=== PATIENT | female | born 1965 | race American Indian/Alaskan Native ===

== ENCOUNTER 2021-12-06 12:03 | Emergency (ER) | payer SELFPAY ==
[2021-12-06 13:14] VITALS: BP 139/92
--- NOTE | 2021-12-06 13:18 | Emergency Department Report ---
Chief Complaint: Abdominal Pain Stated Complaint: RIGHT SIDE OF STOMACH PAIN Time Seen by Provider: 12/06/21 13:16 - HPI History of Present Illness: 1 week history of RLQ pain. denies fever. - ROS Review of Systems: rlq pain, denies fever, n/v/d, dysuria. - Exam Vital Signs: Vital Signs 12/06/21 13:08 Temperature 98.9 F Pulse Rate 100 H Respiratory 14 Rate Blood Pressure 139/92 O2 Sat by Pulse 100 Oximetry Physical Exam: alert and oriented. MSE screening note: Focused history and physical exam performed. Due to findings the following was ordered: cbc, cmp, ua, lipase. Patient will be evaluated by provider when she is placed in room in back. ED Disposition for MSE Condition: Stable Instructions: Abdominal Pain (ED)
[2021-12-06 14:19] LABS: Alanine Aminotransferase 28 units/L (7-56); Albumin 4.7 g/dL (3.9-5); Blood Urea Nitrogen 11 mg/dL (7-17); Calcium 10.2 mg/dL (8.4-10.2); Hemolysis Index 9
[2021-12-06 14:43] LABS: Hematocrit 39.1 % (30.3-42.9); Mean Corpuscular HGB Conc 33 % (30-34); Mean Corpuscular Volume 85 fl (79-97); Platelet Count 336 K/mm3 (140-440); Red Blood Count 4.58 M/mm3 (3.65-5.03); Red Cell Distribution Width 14.4 % (13.2-15.2)
[2021-12-06 14:44] LABS: BUN/Creatinine Ratio 28
[2021-12-06 21:03] LABS: Bilirubin,Urine NEG (Negative); Blood,Urine NEG (Negative); Color,Urine Straw (Yellow); Protein,Urine <15 mg/dL mg/dL (Negative); Urobilinogen,Urine < 2.0 mg/dL (<2.0)
[2021-12-06] MEDS ORDERED: ACETAMINOPHEN 500 MG TAB PO ONE (21:16)
--- NOTE | 2021-12-06 21:22 | Emergency Department Report ---
ED Abdominal Pain HPI - General Chief Complaint: Abdominal Pain Stated Complaint: RIGHT SIDE OF STOMACH PAIN Time Seen by Provider: 12/06/21 13:16 Source: patient Mode of arrival: Ambulatory Limitations: No Limitations - History of Present Illness Initial Comments: Patient 6-year-old female with history of hypertension who presents for right lower quadrant pain x1 week. Patient states pain is exacerbated by movement and reaching twisting. Patient denies fall injury or trauma. Patient denies dysuria frequency or urgency. There is no nausea no vomiting. Patient does endorse small hard stools. There is been no fevers no chills. No rigors. Lenore ent drove self to ED patient is alert oriented x3 and amatory with steady gait. Patient appears nontoxic and well-hydrated. Patient rates pain at 3/10 at this time. MD Complaint: abdominal pain - Related Data Previous Rx's Medication Instructions Recorded Last Taken Type Naproxen 500 mg PO BID PRN #30 tab 12/06/21 Unknown Rx polyethylene glycoL 3350 [Miralax 17 gm PO BID PRN #14 packet 12/06/21 Unknown Rx 3350] ED Review of Systems ROS: Stated complaint: RIGHT SIDE OF STOMACH PAIN Other details as noted in HPI Constitutional: denies: chills, fever Eyes: denies: eye pain, eye discharge, vision change ENT: denies: ear pain, throat pain Respiratory: denies: cough, shortness of breath, wheezing Cardiovascular: denies: chest pain, palpitations Endocrine: no symptoms reported Gastrointestinal: abdominal pain. denies: nausea, vomiting, diarrhea, constipation Genitourinary: denies: urgency, dysuria, frequency, hematuria, discharge Musculoskeletal: back pain (Bilateral low back pain). denies: joint swelling, arthralgia Skin: denies: rash, lesions Neurological: denies: headache, weakness, paresthesias, vertigo Psychiatric: denies: anxiety, depression Hematological/Lymphatic: denies: easy bleeding, easy bruising ED Past Medical Hx - Past Medical History Hx Hypertension: Yes - Social History Smoking Status: Never Smoker - Medications Home Medications: Home Medications Medication Instructions Recorded Confirmed Last Taken Type Naproxen 500 mg PO BID PRN #30 tab 12/06/21 Unknown Rx polyethylene glycoL 3350 [Miralax 17 gm PO BID PRN #14 packet 12/06/21 Unknown Rx 3350] ED Physical Exam - General Limitations: No Limitations General appearance: alert, in no apparent distress - Head Head exam: Present: normocephalic, normal inspection - Eye Eye exam: Present: EOMI Pupils: Present: normal accommodation - ENT ENT exam: Present: mucous membranes moist - Neck Neck exam: Present: normal inspection, full ROM. Absent: tenderness - Respiratory Respiratory exam: Present: normal lung sounds bilaterally. Absent: respiratory distress, wheezes - Cardiovascular Cardiovascular Exam: Present: regular rate, normal rhythm, normal heart sounds. Absent: systolic murmur, diastolic murmur, rubs, gallop - GI/Abdominal GI/Abdominal exam: Present: tenderness (No right lower quadrant tenderness to deep palpation. There is no thrill no bruit no erythema no ecchymosis no swelling), normal bowel sounds. Absent: distended, guarding, rebound, rigid, bruit, hernia - Expanded GI/Abdominal Exam Expanded GI/Abdominal exam: Absent: psoas sign, obturator sign, heel tap sign, Morales's sign, Rovsing's sign, ascites - Rectal Rectal exam: Present: deferred - Extremities Exam Extremities exam: Present: normal inspection, full ROM, normal capillary refill. Absent: pedal edema - Back Exam Back exam: Present: normal inspection, full ROM. Absent: CVA tenderness (R), CVA tenderness (L) - Neurological Exam Neurological exam: Present: alert, oriented X3, CN II-XII intact, normal gait - Psychiatric Psychiatric exam: Present: normal affect, normal mood - Skin Skin exam: Present: warm, dry, intact, normal color. Absent: rash ED Course Vital Signs 12/06/21 13:08 Temperature 98.9 F Pulse Rate 100 H Respiratory 14 Rate Blood Pressure 139/92 O2 Sat by Pulse 100 Oximetry ED Medical Decision Making - Lab Data Result diagrams: 12/06/21 13:38 12/06/21 13:38 Labs 12/06/21 12/06/21 12/06/21 13:38 13:38 Unknown WBC 4.9 RBC 4.58 Hgb 13.0 Hct 39.1 MCV 85 MCH 28 MCHC 33 RDW 14.4 Plt Count 336 Sodium 144 Potassium 4.5 Chloride 105.0 Carbon Dioxide 29 Anion Gap 15 BUN 11 Creatinine 0.4 L Estimated GFR > 60 BUN/Creatinine Ratio 28 Glucose 109 H Calcium 10.2 Total Bilirubin 0.20 AST 32 ALT 28 Alkaline Phosphatase 125 Total Protein 7.7 Albumin 4.7 Albumin/Globulin Ratio 1.6 Lipase 19 Urine Color Straw Urine Turbidity Clear Urine pH 5.0 Ur Specific [place] 1.008 Urine Protein <15 mg/dl Urine Glucose (UA) Neg Urine Ketones Neg Urine Blood Neg Urine Nitrite Neg Urine Bilirubin Neg Urine Urobilinogen < 2.0 Ur Leukocyte Esterase Neg Urine WBC (Auto) 3.0 Urine RBC (Auto) 4.0 U Epithel Cells (Auto) 1.0 - Radiology Data Radiology results: report reviewed, image reviewed ABDOMEN 1 VIEW INDICATION / CLINICAL INFORMATION: Abd Pain. COMPARISON: None available. FINDINGS: TUBES / LINES: None. BOWEL GAS PATTERN: No significant abnormality. FREE AIR / EXTRALUMINAL GAS: None seen. ADDITIONAL FINDINGS: No significant additional findings. IMPRESSION: 1. No significant abnormality. Signer Name: Owen Gabriel DO Signed: 12/06/2021 9:56 PM Workstation Name: [id number] Transcribed By: ELIEL Dictated By: OWEN GABRIEL DO Electronically Authenticated By: OWEN GABRIEL DO Signed Date/Time: 12/06/212155 DD/ 55 TD/TT: - Medical Decision Making Labs normal KUB normal gas pattern. Patient is tolerating p.o. intake at this time without nausea vomiting this is likely abdominal wall strain plan NSAIDs as needed pain, laxative of choice for as needed constipation. Follow-up with primary care doctor in 2 to 3 days. Patient verbalized agreement and u nderstanding of discharge plan. Patient DC'd home in stable condition at this time. Critical care attestation.: If time is entered above; I have spent that time in minutes in the direct care of this critically ill patient, excluding procedure time. ED Disposition Clinical Impression: Abdominal wall strain Qualifiers: Encounter type: initial encounter Qualified Code(s): S39.011A - Strain of muscle, fascia and tendon of abdomen, initial encounter Abdominal pain Qualifiers: Abdominal location: lower abdomen, unspecified Qualified Code(s): R10.30 - Lower abdominal pain, unspecified Disposition: 01 HOME / SELF CARE / HOMELESS Is pt being admited?: No Does the pt Need Aspirin: No Condition: Stable Instructions: Abdominal Pain (ED), Adductor Muscle Strain, Abdominal Pain, Adult Additional Instructions: Take medications as prescribed, follow-up with your doctor in 2 to 3 days. Return to emergency department if unable to tolerate by mouth intake. Or if symptoms worsen Prescriptions: polyethylene glycoL 3350 [Miralax 3350] 17 gm PO BID PRN #14 packet PRN Reason: Constipation Naproxen 500 mg PO BID PRN #30 tab PRN Reason: pain Referrals: DENIS LY MD [Staff Physician] - 3-5 Days Forms: Work/School Release Form(ED) Time of Disposition: 22:22
--- NOTE | 2021-12-06 22:01 | XRay Report ---
ABDOMEN 1 VIEW INDICATION / CLINICAL INFORMATION: Abd Pain. COMPARISON: None available. FINDINGS: TUBES / LINES: None. BOWEL GAS PATTERN: No significant abnormality. FREE AIR / EXTRALUMINAL GAS: None seen. ADDITIONAL FINDINGS: No significant additional findings. IMPRESSION: 1. No significant abnormality. Signer Name: Owen Gabriel DO Signed: 12/06/2021 9:56 PM Workstation Name: [id number]
== END 2021-12-06 22:40 | disposition home or self-care (01) ==
LOC: ED 12:03
DX: S39.011A Strain of muscle, fascia and tendon of abdomen, initial encounter (principal); I10 Essential (primary) hypertension; X58.XXXA Exposure to other specified factors, initial encounter; Y93.89 Activity, other specified; Y92.89 Other specified places as the place of occurrence of the external cause; Y99.8 Other external cause status
CPT/HCPCS: 36415; 74018; 80053; 81001; 83690; 85027; 99283; 99284